=== PATIENT | male | born 1940 | race Caucasian/White ===

== ENCOUNTER → 2018-03-16 09:28 | Outpatient (CLI) | payer MEDICARE, OTHER, SELFPAY ==
[2018-03-16 11:40] LABS: Alanine Aminotransferase 34 IU/L (21-72); Albumin 4.1 g/dL (3.5-5.0); Albumin Globulin Ratio 1.6 (1.0-2.8); Alkaline Phosphatase 56 U/L (38-126); Aspartate Aminotransferase 31 IU/L (17-59); BUN Creatinine Ratio 15.6 (6-22); Bilirubin Total 1.5 mg/dL (0.2-1.3); Blood Urea Nitrogen 14 mg/dL (9-20); Calcium 9.3 mg/dL (8.4-10.2); Carbon Dioxide 31 mmol/L (22-32); Chloride 100 mmol/L (98-107); Estimated Glomerular Filt Rate > 60.0 mL/min (>60); Globulin 2.6 g/dL (1.7-4.1); Glucose 88 mg/dL (80-110); HEMOLYSIS < 15 (0-50); Potassium 4.9 mmol/L (3.4-5.1); Sodium 140 mmol/L (137-145); Total Protein 6.7 g/dL (6.3-8.2)
[2018-03-17 11:07] LABS: Cholesterol 204 mg/dL (140-199); HDL Cholesterol 53 mg/dL (40-60); LDL Cholesterol Calculated 132 mg/dL (<100); Triglycerides 95 mg/dL (35-150)
== END ==
PROVIDERS: PCP Internal Medicine; Visit Provider Internal Medicine
DX: E78.5 Hyperlipidemia, unspecified (principal); I10 Essential (primary) hypertension; N13.8 Other obstructive and reflux uropathy; N40.1 Benign prostatic hyperplasia with lower urinary tract symptoms
CPT/HCPCS: 36415; 80053; 80061; 84153

== ENCOUNTER 2018-08-19 11:02 | Day surgery (SDC) | payer MEDICARE, OTHER, SELFPAY ==
[2018-08-10 10:11] VITALS: BMI 23.0
[2018-08-19 12:38] VITALS: BP 187/84; PULSE 65; RESP 18; TEMP 36.3; O2SAT 98; BMI 23.0
[2018-08-19] MEDS: LACTATED RINGERS 1,000 ML 100 ML IV ×2 (12:47→14:53)
--- NOTE | 2018-08-19 13:07 | PM.PREOP ---
Pre-operative Note Interval Note Pre-op Check: Yes History & Physical Reviewed by Physician and Yes Exam Performed Changes: No H&P completed within 30 days and has changed as indicated here:: H&P from 07/27/2018
[2018-08-19] MEDS: CEFAZOLIN 2 GM/100 ML FROZ.PIGGY IV (13:30)
--- NOTE | 2018-08-19 13:57 | SUR.OPER ---
Supine on padded OR bed, head on pillow, arms secured on padded arm boards at <90 degrees abduction, legs uncrossed, safety belt at thigh, tape over blanket over lower legs.
[2018-08-19] MEDS: BUPIVACAINE 0.5% (PF) VIAL 30 ML INJ (14:05)
[2018-08-19 15:10] VITALS: BP 123/62; PULSE 67; RESP 14; TEMP 37.3; O2SAT 97
[2018-08-19 15:15] VITALS: BP 130/66; PULSE 74; RESP 14; O2SAT 95
[2018-08-19 15:20] VITALS: BP 129/63; PULSE 71; RESP 10; TEMP 37.3; O2SAT 96
--- NOTE | 2018-08-19 15:20 | PM.OP.1 ---
Operative Date/Time/Diagnoses Date of procedure: 08/19/18 Time of procedure: 15:03 Pre-op diagnosis: Bilateral inguinal hernias. Reducible. Post-op diagnosis: same (Direct hernias) Procedure & Clinicians Procedure: Repair of inguinal hernias bilateral with plug and patch technique Same procedure as scheduled: Yes Indications: Symptomatic hernias Surgeon: Yoel Haley Click Yes if Unassisted: Yes Anesthesia Type: General Operative Notes Findings: Direct hernias Closure Type: primary Specimen(s): none sent Implants & Drains: Mesh Estimated Blood Loss (mL): 10 Blood products transfused: none Procedure in detail: The patient was placed supine on the operating room table and underwent general LMA anesthesia. He was prepped and draped in the usual fashion. A transverse incision was made on the left overlying the internal ring and carried down to the level of the external oblique. The external oblique was opened parallel with its fibers through the external ring. The cord structures were elevated. The cremaster was opened proximally and search made for an indirect sac. None was found. There was a small amount of fat removed from the cord.. The floor was examined and was found to be markedly attenuated with a direct hernia. The floor was opened and the preperitoneal fat dissected off of the attenuated floor tissues. A medium plug was placed in the defect and tacked into place with interrupted 0 Ethibond suture. I decided to close the floor over the mass using a a technique similar to a modified shoulder ice repair. Suture was placed near the pubic tubercle and the medial underside of the floor was sutured to the cut lateral side eliminating the weakened area. Then the cut medial side was run back suturing to the edge of the ilioinguinal lunate ligament tiny of the pubic tubercle. A patch was placed across the floor and tacked at the pubic tubercle, the posterior lamella of the anterior rectus sheath, the ilioinguinal ligament, and superior lateral to the cord. The opening was modified as necessary to prevent tight constriction of the cord. Sutures of 0 Tycron were used to secure the mesh. The external oblique was closed with a running 3 0 Polysorb. The subcu was closed with interrupted 3 0 Polysorb. The skin was closed with a running 4 0 Polysorb subcuticular stitch . Attention was then turned to the right side where an I a mirror incision and almost identical operation was undertaken. The only difference was that I use a large the right side at completion local anesthetic was infiltrated around the incisions and Mastisol and Steri-Strips were placed across the wound and then a dressing on top. Testes were pulled down. Patient was taken to the recovery area extubated in good condition. Complications: none Condition: stable Disposition: PACU Plan for aftercare: Follow-up in about 2 weeks.
[2018-08-19 15:35] VITALS: BP 107/46; PULSE 72; RESP 10; TEMP 37.3; O2SAT 97
== END 2018-08-19 16:15 | disposition home or self-care (01) ==
PROVIDERS: Family Provider Internal Medicine; PCP Internal Medicine; Visit Provider Specialist
PROC: (CPT 49505; principal; 2018-08-19 12:45)
DX: K40.20 Bilateral inguinal hernia, without obstruction or gangrene, not specified as recurrent (principal); I10 Essential (primary) hypertension; E78.5 Hyperlipidemia, unspecified; N40.1 Benign prostatic hyperplasia with lower urinary tract symptoms; N13.8 Other obstructive and reflux uropathy
CPT/HCPCS: 49505; C1781; J0690; J1100; J2250; J2405; J2704; J3010

== ENCOUNTER → 2019-02-11 09:43 | Outpatient (CLI) | payer MEDICARE, OTHER, SELFPAY ==
--- NOTE | 2019-02-11 | DI.CT.S_ITS ---
PROCEDURE: CT ORBIT BI WO/W CON INDICATIONS: PAPILLEDEMA TECHNIQUE: After the administration of intravenous contrast, 2.5 mm axial images acquired through the orbits, with coronal and sagittal reformats. For radiation dose reduction, the following was used: automated exposure control, adjustment of mA and/or kV according to patient size. COMPARISON: [facility], CT, CT HEAD/BRAIN WO/W CON, 02/11/2019, 10:51. FINDINGS: Image quality: Excellent. Orbits: In this patient with this given history, scrutiny is given to the optic nerves. The optic nerves are normal in size and enhancement. A left lens replacement can be seen. Globes are symmetrical. No retrobulbar masses or fat abnormalities. The extra-ocular muscles are normal and symmetrical in appearance. Lacrimal glands are normal. Optic chiasm is normal. Periorbital soft tissues are normal. Intracranial: The pituitary gland is normal, without sellar or suprasellar masses. Visualized cerebral hemispheres, brainstem, and spinal cord appear normal. The abnormal brain enhancement seen on the accompanying head CT is off of the [id number] of this study. Bones and sinuses: Visualized calvarium and facial bones appear intact. Visualized sinuses and mastoids are clear. IMPRESSION: Normal optic nerves. Normal orbits. Note: Case discussed by telephone with Dr. Alexis at 1:13 PM [place] time on February 11, 2019. Dictated by: Alfonso Jolly M.D. on 02/11/2019 at 12:18 Approved by: Alfonso Jolly M.D. on 02/11/2019 at 12:19
--- NOTE | 2019-02-11 | DI.CT.S_ITS ---
PROCEDURE: CT HEAD/BRAIN WO/W CON INDICATIONS: PAPILLEDEMA TECHNIQUE: 4.5 mm thick angled axial sections acquired from the foramen magnum to the vertex both before and after the administration of intravenous contrast, with coronal and sagittal reformats. For radiation dose reduction, the following was used: automated exposure control, adjustment of mA and/or kV according to patient size. COMPARISON: [facility], CT, CT ORBIT BI WO/W CON, 02/11/2019, 10:51. FINDINGS: Image quality: Excellent. CSF spaces: Basal cisterns are patent. No extra-axial fluid collections. Ventricles are symmetric in size and shape. Brain: No midline shift. No intracranial bleeds are seen. There is abnormal enhancement seen involving the right posterior frontal lobe superiorly, which measures 2.1 x 2.3 cm in greatest axial dimension. No abnormal intracranial enhancement. There is cerebral volume loss for age. There is periventricular white matter chronic small vessel ischemic change. There is intracranial internal carotid artery atherosclerosis. Skull and face: Calvarium and visualized facial bones appear intact, without suspicious lesions. In this patient with this given history, scrutiny is given to the orbits. No orbital abnormality can be seen, including involving the optic nerves. It is made of a left lens replacement. Sinuses: Visualized sinuses and mastoids are clear. IMPRESSION: Abnormal enhancement seen involving the right posterior superior frontal lobe. The appearance is nonspecific, although concern is raised for a primary brain neoplasm. Differential diagnosis also includes metastatic disease and a vascular lesion, however. Please consider a dedicated brain MRI without and with contrast for further evaluation (assuming that there is no contraindication). No orbital abnormality is detected. Note: Findings and recommendations discussed by telephone with Dr. Alexis at 1:13 PM [place] time on February 11, 2019. Dictated by: Alfonso Jolly M.D. on 02/11/2019 at 12:06 Approved by: Alfonso Jolly M.D. on 02/11/2019 at 12:18
[2019-02-11 10:37] LABS: Blood Urea Nitrogen 18 mg/dL (9-20); Estimated Glomerular Filt Rate > 60.0 mL/min (>60)
[2019-02-11 10:42] LABS: C-Reactive Protein Quant < 0.5 mg/dL (<1.0)
[2019-02-11 11:11] LABS: Add Manual Diff / Slide Review NO; Basophils Absolute Auto 100 /uL (0-100); Eosinophils Absolute Auto 200 /uL (0-450); Eosinophils Percent Auto 2.5 % (2-4); Hemoglobin 15.5 g/dL (13.5-17.5); Lymphocytes Absolute Auto 1700 /uL (1100-4500); Lymphocytes Percent Auto 27.2 % (25-40); Mean Corpuscular Hemoglobin 30.9 PG (26-34); Mean Corpuscular Volume 93.6 fL (80-100); Monocytes Absolute Auto 500 /uL (0-900); Monocytes Percent Auto 8.1 % (3-14); Neutrophils Absolute Auto 3800 /uL (1500-7000); Neutrophils Percent Auto 61.2 % (50-75); Platelet Count 220 X10^3/uL (150-400); Red Blood Cell Count 5.02 X10^6/uL (4.5-5.9); White Blood Cell Count 6.2 X10^3/uL (4.5-11.0)
[2019-02-11 11:11] LABS: Hemoglobin A1C% w Est Avg Glu 5.3 % (4.0-6.0)
[2019-02-11 11:19] LABS: Erythrocyte Sedimentation Rate 1 MM/HR (0-15)
[2019-02-11 11:27] LABS: Alanine Aminotransferase 35 IU/L (21-72); Albumin 4.2 g/dL (3.5-5.0); Albumin Globulin Ratio 1.8 (1.0-2.8); Alkaline Phosphatase 53 U/L (38-126); Aspartate Aminotransferase 41 IU/L (17-59); Bilirubin Total 1.3 mg/dL (0.2-1.3); Blood Urea Nitrogen 18 mg/dL (9-20); Calcium 9.3 mg/dL (8.4-10.2); Carbon Dioxide 31 mmol/L (22-32); Chloride 103 mmol/L (98-107); Cholesterol 142 mg/dL (140-199); Estimated Glomerular Filt Rate > 60.0 mL/min (>60); Globulin 2.4 g/dL (1.7-4.1); Glucose 77 mg/dL (80-110); HDL Cholesterol 56 mg/dL (40-60); HEMOLYSIS < 15 (0-50); LDL Cholesterol Calculated 72 mg/dL (<100); Potassium 4.9 mmol/L (3.4-5.1); Sodium 141 mmol/L (137-145); Total Protein 6.6 g/dL (6.3-8.2); Triglycerides 68 mg/dL (35-150)
[2019-02-11 11:56] LABS: TSH w/ Reflex to FT4 2.16 uIU/mL (0.47-4.68)
[2019-02-16 08:47] LABS: Arsenic < 2 mcg/L (< 23); Lead, Blood 1 mcg/dL (< 5)
[2019-02-17 13:25] LABS: Mercury, Blood < 2
== END ==
PROVIDERS: PCP Internal Medicine; Visit Provider Optometrist
DX: H47.10 Unspecified papilledema (principal); G62.9 Polyneuropathy, unspecified; E78.5 Hyperlipidemia, unspecified; I10 Essential (primary) hypertension
CPT/HCPCS: 36415; 70470; 70482; 80053; 80061; 82565; 83036; 83825; 84443; 84520; 85025; 85651; 86140; Q9967

== ENCOUNTER → 2019-02-14 06:29 | Outpatient (CLI) | payer MEDICARE, OTHER, SELFPAY ==
--- NOTE | 2019-02-14 | DI.MRI.S_ITS ---
PROCEDURE: MR HEAD/BRAIN WO/W CON INDICATIONS: BENIGN NEOPLASM TECHNIQUE: Noncontrast axial T1 spin echo, axial T2 fast spin echo, sagittal and axial FLAIR, coronal T2 fast spin echo, axial gradient echo, axial diffusion and ADC through the brain. After the administration of contrast, axial and coronal T1 spin echo with fat saturation through the brain. COMPARISON: , CT, CT HEAD/BRAIN WO/W CON, 02/11/2019, 10:51. FINDINGS: Image quality: Degraded by body habitus/technical factors. CSF spaces: Basal cisterns are patent. No extra-axial fluid collections. Ventricles are normal in size and shape. Brain: No midline shift. No acute intracranial bleeds or masses. Within the right posterior superior frontal lobe, there is a cluster of curvilinear and nodular low T2 signal intensity foci, measuring roughly 20 mm transverse by 17 mm anteroposterior. There is curvilinear and nodular enhancement within this region following intravenous contrast administration. There is cerebral volume loss for age. There is periventricular white matter chronic small vessel ischemic change. The brainstem appears normal. Diffusion-weighted images demonstrate no acute ischemic insults. No chronic ischemic insults. Normal intravascular flow voids are present. Skull and face: Calvarial marrow is normal in signal. Orbits appear normal. Sinuses: Mild mucosal thickening within the bilateral ethmoid and within the right maxillary sinus. Mastoids clear. IMPRESSION: 1. 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 No evidence of acute process such as hemorrhage. Dictated by: Tammi Cobos M.D. on 02/14/2019 at 11:12 Approved by: Tammi Cobos M.D. on 02/14/2019 at 11:18
== END ==
PROVIDERS: PCP Internal Medicine; Visit Provider Optometrist
DX: D33.2 Benign neoplasm of brain, unspecified (principal)
CPT/HCPCS: 70553

== ENCOUNTER 2019-05-19 11:55 | Day surgery (SDC) | payer MEDICARE, OTHER, SELFPAY ==
--- NOTE | 2019-05-19 | PATH_ITS ---
[facility] Accession Number: [id number] . 01 Material submitted: . colon - POLYP AT 90 CM COLON . 02 Diagnosis: Colon, Polyp at 90 cm, Biopsy: Benign lymphoid aggregate. [facility]/05/20/2019 . 02 Electronically signed: . Genia Wilde MD, Pathologist NPI- [id number] . 01 Gross description: . POLYP AT 90 CM COLON: Received in formalin is 1 fragment(s) of cristina, soft tissue measuring 0.1 x 0.1 x 0.1 cm which is entirely submitted and submitted entirely in 1 cassette(s) /DMC /DMC . 02 Pathologist provided ICD-10: K63.5 . 02 CPT . 104523 Performed at: 01 [facility] [address] [place] [address], [place], [place] [id number] MD Philippe Hinojosa MD Phone: [phone] Performed at: 02 [facility] [address] [place], [place] [id number] MD Genia Wilde MD Phone: [phone]
[2019-05-19 12:10] VITALS: BP 175/86; PULSE 67; RESP 16; TEMP 36.6
[2019-05-19 12:27] VITALS: BMI 23.2
[2019-05-19] MEDS: SODIUM CHLORIDE 0.9% 1,000 ML 100 ML IV (12:41)
--- NOTE | 2019-05-19 12:41 | P.HP_ITS ---
History of Present Illness Chief complaint: 78054 SCREENING COLONOSCOPY Narrative: Patient presents for colorectal screening. They have had a previous endoscopy 2013 normal and 2008 demonstated a polyp-type non specified. On further history denies any recent gastrointestinal symptoms. No nausea, vomiting, abdominal pain, loss of appetite, unexplained weight loss, change in bowel habits, diarrhea, constipation, melena, hematochezia, or bright red blood per rectum. 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) History of adenomatous polyp of colon (Chronic ~1999) Actinic keratosis (Chronic ~1999) RBBB (Chronic) Vision disorder (Chronic) Bruises easily (Resolved) Fracture (Resolved ~1994) Hernia (Resolved ~2014) Measles (Resolved ~1947) Surgical History (Updated 03/24/19 @ 09:52 by Lorenzo Langston MD) Anesthesia (Resolved) History of knee surgery (Inactive ~10/2017) S/P carpal tunnel release (Inactive ~02/2019) S/P cataract extraction (Inactive) S/P right inguinal hernia repair (Inactive ~08/2018) Status post colonoscopy (~1999) Status post colonoscopy (~2004) Status post colonoscopy (~2009) Status post rotator cuff repair (~1994) Family History Brother Age: 87 Family hx of colon cancer Father Family hx of colon cancer Cancer Mother Hypertension Mental health problem Social History marital status: number of children: 2 household members: spouse lives independently: Yes caregiver/support person: No housing: house pets and animals: Yes education level: college occupational status: other Previous occupational history: product development engineer [employer] elena/yarsani: [employer]ikh[employer] travel history: over 6 months ago leisure activities: exercise, reading, volunteer work and other Smoking Status: Never smoker Tobacco: How many years used: 0 second hand exposure: Yes (In the past.) alcohol intake: current substance use type: does not use Family & Social History Social History: household members spouse lives independently Yes caregiver/support person No Tobacco & Substance use: Smoking Status Never smoker alcohol intake current alcohol intake frequency 0-2 drinks per day Substance Use Type does not use Meds Home Medications Medication Instructions Recorded Confirmed Type lisinopril 20 mg tablet 20 mg PO DAILY #30 tab 01/21/19 05/19/19 Rx rosuvastatin 10 mg tablet 10 mg PO DAILY #90 tab 03/18/19 05/19/19 Rx tamsulosin [Flomax] 0.4 mg PO QDAY #90 cap 04/05/19 05/19/19 Rx Allergies Allergy/AdvReac Type Severity Reaction Status Date / Time atorvastatin AdvReac Unknown Muscle Verified 03/24/19 09:32 symptoms No Known Allergies Allergy Uncoded 03/24/19 09:32 Review of Systems Review of Systems All systems reviewed & are unremarkable except as noted in HPI and below Exam Vital Signs (past 8 hours): General-adult male no acute distress, well nourished HEENT-moist mucous membranes, no scleral icterus Neck-supple with full range of motion, no lymphadenopathy Chest- no labored respirations, clear to auscultation bilaterally Cardiac-regular rate and rhythm Abdomen-soft, nontender, non distended Extremities-no edema, warm well perfused Neurological-alert and oriented x 3. No focal deficits Skin-normal temperature and turgor, no rashes or ulcers Assessment & Plan Assessment & Plan narrative: Patient is requiring colorectal screening. Colonoscopy is recommended. Technical details were discussed. Risks, benefits, alternatives explained. Risks including but not limited to sedation, aspiration, bleeding, pain, missed lesion, incomplete examination, need for further radiographic studies, colonic perforation, need for major abdominal surgery, and all attendant risks major surgery were discussed at length. All questions were answered to their satisfaction, and they voiced understanding.
--- NOTE | 2019-05-19 12:41 | PM.PREOP ---
Pre-operative Note Interval Note History & Physical reviewed/Exam performed by Physician: Yes Changes to H&P: No ASA Class (for procedural sedation): II
[2019-05-19] MEDS: MIDAZOLAM 5 MG/5 ML VIAL IV (13:00)
[2019-05-19] MEDS: fentaNYL 250 MCG/5 ML INJ IV (13:01)
--- NOTE | 2019-05-19 13:36 | PM.OP.ENDO ---
Operative Date/Time/Diagnoses Date of procedure: 05/19/19 Time of procedure: 13:37 Pre-op diagnosis: screening colonoscopy Post-op diagnosis: same Procedure & Clinicians Study performed: colonoscopy Same procedure as scheduled: Yes Indications: screening colonoscopy Surgeon: Anmol Coles Procedure Notes SCOAP/Timeout: performed Procedure in detail: Patient was placed in the left lateral decubitus position. Time-out was performed. A digital rectal exam was performed which demonstrated a normal prostate. The scope was gently inserted into the anus through the descending colon and the transverse colon the ascending colon and the ileocecal valve was reached. This scope was carefully withdrawn. A benign appearing polyps at 90 cm was identified and biopsied. Was hemostatic. The scope was carefully withdrawn. Patient tolerated the procedure well. Scope withdrawal time: 10 Sedation minutes: 38 Findings: diverticulosis and polyp Specimen(s): other (polyp biopsied at 90 cm) Impression: diverticulosis, benign appearing polyp at 90 cm Recommendations: Colonscopy in 10 years Disposition: same day surgery
[2019-05-19 13:37] VITALS: BP 141/86; PULSE 64; RESP 12; TEMP 36.4; O2SAT 95
[2019-05-19 13:42] VITALS: BP 139/89; PULSE 61; RESP 12; O2SAT 95
[2019-05-19 13:47] VITALS: BP 152/87; PULSE 72; RESP 14; O2SAT 96
[2019-05-19 13:52] VITALS: BP 156/90; PULSE 64; RESP 16; TEMP 37.5; O2SAT 97
== END 2019-05-19 14:38 | disposition home or self-care (01) ==
PROVIDERS: PCP Internal Medicine; Visit Provider Surgery
PROC: 0DJD8ZZ Inspection of Lower Intestinal Tract, Via Natural or Artificial Opening Endoscopic (ICD-10-PCS; CPT 45378; principal; 2019-05-19 13:00)
DX: Z12.11 Encounter for screening for malignant neoplasm of colon (principal); K63.5 Polyp of colon; K57.30 Diverticulosis of large intestine without perforation or abscess without bleeding; I10 Essential (primary) hypertension; E78.5 Hyperlipidemia, unspecified; N40.1 Benign prostatic hyperplasia with lower urinary tract symptoms; I45.10 Unspecified right bundle-branch block
CPT/HCPCS: 45380; 88305; 99152; 99153; J2250; J3010

== ENCOUNTER → 2020-04-24 08:58 | Outpatient (CLI) | payer MEDICARE, OTHER, SELFPAY ==
[2020-04-24 09:50] LABS: Albumin 4.5 g/dL (3.5-5.0); Aspartate Aminotransferase 50 IU/L (17-59); BUN Creatinine Ratio 17.8 (6-22); Blood Urea Nitrogen 13 mg/dL (9-20); Calcium 9.6 mg/dL (8.4-10.2); Carbon Dioxide 31 mmol/L (22-32); Chloride 105 mmol/L (98-107); Cholesterol 158 mg/dL (140-199); Estimated Glomerular Filt Rate > 60.0 mL/min (>60); Glucose 94 mg/dL (80-110); HDL Cholesterol 53 mg/dL (40-60); HEMOLYSIS < 15 (0-50); LDL Cholesterol Calculated 86 mg/dL (<100); Potassium 4.7 mmol/L (3.4-5.1); Sodium 142 mmol/L (137-145); Triglycerides 97 mg/dL (35-150)
[2020-04-24 09:55] LABS: Alanine Aminotransferase 38 IU/L (<50); Albumin Globulin Ratio 1.7 (1.0-2.8); Alkaline Phosphatase 63 U/L (38-126); Bilirubin Total 1.7 mg/dL (0.2-1.3); Globulin 2.6 g/dL (1.7-4.1); Total Protein 7.1 g/dL (6.3-8.2)
[2020-04-24 10:19] LABS: Prostate Specific Antigen Scrn 1.43 ng/mL (0.1-4.0)
== END ==
PROVIDERS: PCP Internal Medicine; Referring Provider Internal Medicine; Visit Provider Internal Medicine
DX: Z12.5 Encounter for screening for malignant neoplasm of prostate (principal); E78.2 Mixed hyperlipidemia; I10 Essential (primary) hypertension
CPT/HCPCS: 36415; 80053; 80061; G0103

== ENCOUNTER → 2021-04-26 08:06 | Outpatient (CLI) | payer MEDICARE, OTHER, SELFPAY ==
[2021-04-26 10:53] LABS: Alanine Aminotransferase 31 IU/L (<50); Albumin 3.9 g/dL (3.5-5.0); Albumin Globulin Ratio 1.6 (1.0-2.8); Alkaline Phosphatase 54 U/L (38-126); Aspartate Aminotransferase 40 IU/L (17-59); Bilirubin Total 1.1 mg/dL (0.2-1.3); Blood Urea Nitrogen 16 mg/dL (9-20); Calcium 9.5 mg/dL (8.4-10.2); Carbon Dioxide 31 mmol/L (22-32); Chloride 105 mmol/L (98-107); Cholesterol 151 mg/dL (140-199); Estimated Glomerular Filt Rate > 60.0 mL/min (>60); Globulin 2.4 g/dL (1.7-4.1); Glucose 87 mg/dL (80-110); HDL Cholesterol 58 mg/dL (40-60); HEMOLYSIS < 15 (0-50); LDL Cholesterol Calculated 78 mg/dL (<100); Potassium 4.6 mmol/L (3.4-5.1); Sodium 140 mmol/L (137-145); Total Protein 6.3 g/dL (6.3-8.2); Triglycerides 74 mg/dL (35-150)
[2021-04-26 11:18] LABS: Prostate Specific Antigen Scrn 1.39 ng/mL (0.1-4.0)
== END ==
PROVIDERS: PCP Internal Medicine; Referring Provider Internal Medicine; Visit Provider Internal Medicine
DX: E78.2 Mixed hyperlipidemia (principal); Z12.5 Encounter for screening for malignant neoplasm of prostate; I10 Essential (primary) hypertension
CPT/HCPCS: 36415; 80053; 80061; G0103

== ENCOUNTER 2021-06-20 12:22 | Emergency (ER) | payer MEDICARE, OTHER, SELFPAY ==
[2021-06-20 12:33] VITALS: BP 205/98; PULSE 88; RESP 14; TEMP 37.1; O2SAT 96
== END 2021-06-20 13:35 | disposition left against medical advice (07) ==
PROVIDERS: Emergency Provider Emergency Medicine; PCP Internal Medicine
CPT/HCPCS: 99281

== ENCOUNTER → 2021-07-09 09:43 | Outpatient (CLI) | payer MEDICARE, OTHER, SELFPAY ==
[2021-07-09 12:07] LABS: COVID19 -Nasal RAPID Negative (Negative)
== END ==
PROVIDERS: PCP Internal Medicine; Visit Provider Specialist
DX: Z20.822 Contact with and (suspected) exposure to COVID-19 (principal); Z01.812 Encounter for preprocedural laboratory examination
CPT/HCPCS: 87635; C9803

== ENCOUNTER 2021-07-10 13:10 | Day surgery (SDC) | payer MEDICARE, OTHER, SELFPAY ==
[2021-07-05 08:39] VITALS: BMI 22.9
[2021-07-10] VITALS (7 sets, daily range): BP systolic 111–172; BP diastolic 49–84; PULSE 69–86; RESP 10–16; TEMP 36.6–36.8; O2SAT 95–98; BMI 22.9
[2021-07-10] MEDS: LACTATED RINGERS 1,000 ML 42 ML IV (13:53)
--- NOTE | 2021-07-10 13:54 | SUR.PREOP ---
RBBB noted on chart. Discussed with Pt, Pt denies cardiology consult prior to surgery. No EKG found on service observer chief. Note made on paper chart, Pt encouraged to share info with anesthesiologist.
--- NOTE | 2021-07-10 14:28 | PM.PREOP ---
Pre-operative Note COVID-19 COVID-19 status: Negative Result date/Date tested (Pos, Neg/Pending): 07/09/21 Interval Note History & Physical reviewed/Exam performed by Physician: Yes Changes to H&P: No
[2021-07-10] MEDS: CEFAZOLIN 1 GM VIAL 2 GM IV (14:38)
--- NOTE | 2021-07-10 14:52 | SUR.OPER ---
Supine on padded OR bed, head on pillow, arms secured on padded arm boards at <90 degrees abduction, legs uncrossed, safety belt at thigh, tape over blanket over lower legs.
[2021-07-10] MEDS: BUPIVACAINE 0.5% (PF) VIAL 30 ML INJ (15:25)
--- NOTE | 2021-07-10 16:46 | P.OP_ITS ---
Operative Date/Time/Diagnoses Date of procedure: 07/10/21 Time of procedure: 16:46 Pre-op diagnosis: Recurrent right inguinal hernia reducible Post-op diagnosis: same (Indirect hernia) Procedure & Clinicians Procedure: Repair with onlay of mesh Same procedure as scheduled: Yes Indications: Symptomatic right inguinal hernia Surgeon: Yoel Haley Click Yes if Unassisted: Yes Anesthesia Type: General Operative Notes Findings: Indirect hernia. Old mesh a portion which was removed. Closure Type: primary Specimen(s): none sent Prosthetic devices, grafts, tissues, transplants, or devices: 2 x 4 in piece of Marlex mesh Estimated Blood Loss (mL): 5 Blood products transfused: none Procedure in detail: The patient was placed supine on the operating room table and underwent general LMA anesthesia. He was prepped and draped in the usual fashion. A transverse incision was made overlying the right internal ring through the old scar and carried down to the level of the external oblique. The external oblique was opened parallel with its fibers through the external ring. The cord structures were elevated. This was a very tedious matter due to scarring from his prior operation. I examined the tissues and there was actually some weakness superior and lateral to the cord. The cord was quite small. I opened it however and found that there was an indirect sac. I it from surrounding structures and opened it and suture ligated at the level the deep epigastric vessels. It was transected and the stump of the sac was allowed to retract. Portion of the sac was removed. I dissected the ex ternal oblique after of the underlying mesh and removed a portion of it located superior and lateral to the cord so that I could place a new piece of mesh in the region. A nerve in the area was intentionally transected and removed as it had been stretched and would be laying directly against the new mesh. The end was buried in muscle. Patch was placed across the floor and tacked at the pubic tubercle, the posterior lamella of the anterior rectus sheath, the ilioinguinal ligament, and superior lateral to the cord. An opening was created in the mesh to allow the cord structures to egress through the mesh. Sutures of 0 Tycron were used to secure the mesh. The external oblique was closed with a running 3 0 Vicryl. The subcu was closed with interrupted 3 0 Vicryl. The skin was closed with a running 4 0 Vicryl subcuticular stitch and Steri-Strips. Dressing was applied, the patient was awakened, and the patient was taken to the recovery area in good condition. Complications: none Post-operative Condition: stable Disposition: PACU
== END 2021-07-10 17:30 | disposition home or self-care (01) ==
PROVIDERS: PCP Internal Medicine; Referring Provider Specialist; Visit Provider Specialist
PROC: (CPT 49520; principal; 2021-07-10 14:15)
DX: K40.91 Unilateral inguinal hernia, without obstruction or gangrene, recurrent (principal); I10 Essential (primary) hypertension; E78.5 Hyperlipidemia, unspecified
CPT/HCPCS: 49520; C1781; J0690; J1100; J1885; J2405; J2704; J3010

== ENCOUNTER → 2021-11-06 07:51 | Outpatient (CLI) | payer MEDICARE, SELFPAY ==
[2021-11-06 09:04] LABS: Alanine Aminotransferase 30 IU/L (<50); Albumin Globulin Ratio 1.7 (1.0-2.8); Alkaline Phosphatase 46 U/L (38-126); Aspartate Aminotransferase 36 IU/L (17-59); BUN Creatinine Ratio 17.4 (6-22); Bilirubin Total 1.5 mg/dL (0.2-1.3); Blood Urea Nitrogen 15 mg/dL (9-20); Calcium 9.1 mg/dL (8.4-10.2); Carbon Dioxide 33 mmol/L (22-32); Chloride 103 mmol/L (98-107); Cholesterol 148 mg/dL (140-199); Estimated Glomerular Filt Rate > 60.0 mL/min (>60); Globulin 2.4 g/dL (1.7-4.1); Glucose 89 mg/dL (80-110); HDL Cholesterol 51 mg/dL (40-60); HEMOLYSIS < 15 (0-50); LDL Cholesterol Calculated 84 mg/dL (<100); Potassium 4.2 mmol/L (3.4-5.1); Sodium 137 mmol/L (137-145); Total Protein 6.4 g/dL (6.3-8.2); Triglycerides 66 mg/dL (35-150)
== END ==
PROVIDERS: PCP Internal Medicine; Referring Provider Internal Medicine; Visit Provider Internal Medicine
DX: E78.2 Mixed hyperlipidemia (principal); I10 Essential (primary) hypertension
CPT/HCPCS: 36415; 80053; 80061

== ENCOUNTER → 2022-12-22 08:55 | Outpatient (CLI) | payer MEDICARE, SELFPAY ==
[2022-12-22 10:33] LABS: Alanine Aminotransferase 26 IU/L (<50); Albumin 3.8 g/dL (3.5-5.0); Albumin Globulin Ratio 1.5 (1.0-2.8); Alkaline Phosphatase 63 U/L (38-126); Aspartate Aminotransferase 32 IU/L (17-59); BUN Creatinine Ratio 14.1 (6-22); Bilirubin Total 1.2 mg/dL (0.2-1.3); Blood Urea Nitrogen 12 mg/dL (9-20); Calcium 8.9 mg/dL (8.4-10.2); Carbon Dioxide 30 mmol/L (22-32); Chloride 103 mmol/L (98-107); Cholesterol 146 mg/dL (140-199); Estimated Glomerular Filt Rate > 60 mL/min (>60); Globulin 2.6 g/dL (1.7-4.1); Glucose 90 mg/dL (80-110); HDL Cholesterol 58 mg/dL (40-60); HEMOLYSIS < 15 (0-50); LDL Cholesterol Calculated 76 mg/dL (<100); Potassium 4.1 mmol/L (3.4-5.1); Sodium 139 mmol/L (137-145); Total Protein 6.4 g/dL (6.3-8.2); Triglycerides 61 mg/dL (35-150)
== END ==
PROVIDERS: PCP Internal Medicine; Referring Provider Internal Medicine; Visit Provider Internal Medicine
DX: I10 Essential (primary) hypertension (principal); E78.2 Mixed hyperlipidemia
CPT/HCPCS: 36415; 80053; 80061

== ENCOUNTER → 2023-05-28 07:18 | Outpatient (CLI) | payer MEDICARE, SELFPAY ==
[2023-05-28 08:07] LABS: Alanine Aminotransferase 31 IU/L (<50); Albumin Globulin Ratio 1.7 (1.0-2.8); Alkaline Phosphatase 52 U/L (38-126); Aspartate Aminotransferase 43 IU/L (17-59); BUN Creatinine Ratio 17.9 (6-22); Bilirubin Total 1.7 mg/dL (0.2-1.3); Blood Urea Nitrogen 15 mg/dL (9-20); Carbon Dioxide 30 mmol/L (22-32); Chloride 102 mmol/L (98-107); Cholesterol 137 mg/dL (140-199); Estimated Glomerular Filt Rate > 60 mL/min (>60); Globulin 2.4 g/dL (1.7-4.1); Glucose 90 mg/dL (80-110); HDL Cholesterol 67 mg/dL (40-60); HEMOLYSIS < 15 (0-50); LDL Cholesterol Calculated 60 mg/dL (<100); Potassium 4.1 mmol/L (3.4-5.1); Sodium 138 mmol/L (137-145); Total Protein 6.4 g/dL (6.3-8.2); Triglycerides 52 mg/dL (35-150)
[2023-05-28 08:17] LABS: Add Manual Diff / Slide Review NO; Basophils Absolute Auto 100 /uL (0-100); Basophils Percent Auto 1.2 % (0-2); Eosinophils Absolute Auto 100 /uL (0-450); Eosinophils Percent Auto 2.3 % (2-4); Hematocrit 42.5 % (41-53); Hemoglobin 14.4 g/dL (13.5-17.5); Lymphocytes Absolute Auto 1900 /uL (1100-4500); Lymphocytes Percent Auto 31.5 % (25-40); Mean Corpuscular HGB Conc 33.9 % (30-36); Mean Corpuscular Hemoglobin 31.1 PG (26-34); Mean Corpuscular Volume 91.6 fL (80-100); Monocytes Absolute Auto 500 /uL (0-900); Monocytes Percent Auto 8.6 % (3-14); Neutrophils Absolute Auto 3400 /uL (1500-7000); Neutrophils Percent Auto 56.4 % (50-75); Platelet Count 212 X10^3/uL (150-400); Red Blood Cell Count 4.63 X10^6/uL (4.5-5.9); Red Cell Distribution Width 13.8 % (11.6-14.8); White Blood Cell Count 6.1 X10^3/uL (4.5-11.0)
[2023-05-28 08:36] LABS: TSH w/ Reflex to FT4 2.52 uIU/mL (0.47-4.68)
== END ==
PROVIDERS: PCP Internal Medicine; Referring Provider Internal Medicine; Visit Provider Internal Medicine
DX: E78.2 Mixed hyperlipidemia (principal); I10 Essential (primary) hypertension; R53.83 Other fatigue
CPT/HCPCS: 36415; 80053; 80061; 84443; 85025

== ENCOUNTER → 2023-09-24 15:35 | Outpatient (CLI) | payer MEDICARE, SELFPAY ==
[2023-09-25 19:44] LABS: Vitamin B12 359 pg/mL (239-931)
== END ==
PROVIDERS: PCP Internal Medicine; Referring Provider Physician Assistant; Visit Provider Physician Assistant
DX: G62.9 Polyneuropathy, unspecified (principal)
CPT/HCPCS: 36415; 82607

== ENCOUNTER → 2024-04-21 07:55 | Outpatient (CLI) | payer MEDICARE, SELFPAY ==
[2024-04-21 10:37] LABS: Alanine Aminotransferase 37 IU/L (<50); Albumin Globulin Ratio 1.6 (1.0-2.8); Alkaline Phosphatase 54 U/L (38-126); Aspartate Aminotransferase 37 IU/L (17-59); BUN Creatinine Ratio 17.5 (6-22); Bilirubin Total 1.3 mg/dL (0.2-1.3); Blood Urea Nitrogen 17 mg/dL (9-20); Calcium 8.7 mg/dL (8.4-10.2); Carbon Dioxide 31 mmol/L (22-32); Chloride 106 mmol/L (98-107); Cholesterol 148 mg/dL (140-199); Estimated Glomerular Filt Rate > 60 mL/min (>60); Globulin 2.5 g/dL (1.7-4.1); Glucose 89 mg/dL (80-110); HDL Cholesterol 73 mg/dL (40-60); HEMOLYSIS < 15 (0-50); LDL Cholesterol Calculated 66 mg/dL (<100); Potassium 4.9 mmol/L (3.4-5.1); Sodium 139 mmol/L (137-145); Total Protein 6.5 g/dL (6.3-8.2); Triglycerides 45 mg/dL (35-150)
== END ==
PROVIDERS: PCP Internal Medicine; Referring Provider Internal Medicine; Visit Provider Internal Medicine
DX: I10 Essential (primary) hypertension (principal); E78.2 Mixed hyperlipidemia
CPT/HCPCS: 36415; 80053; 80061

== ENCOUNTER → 2024-10-04 10:26 | Outpatient (CLI) | payer MEDICARE, SELFPAY ==
--- NOTE | 2024-10-04 10:28 | DI.US.S_ITS ---
PROCEDURE: US PERIPH VENOUS LOW EXTREM LT INDICATIONS: CHRONIC EDEMA TECHNIQUE: Real-time imaging, as well as color and pulse Doppler interrogation, were performed of the lower extremity deep veins from the inguinal ligament to the popliteal fossa, with documentation of the visualized calf veins. COMPARISON: None. FINDINGS: The common femoral, femoral, popliteal, and the visualized calf veins are normally compressible, and free of intraluminal thrombus. Color and pulse Doppler demonstrate normal phasic intraluminal flow. There is normal augmentation response to distal compression maneuver. IMPRESSION: No findings of lower extremity deep venous thrombosis. Dictated by: Sophie Barnett MD, PhD on 10/04/2024 at 11:27 Approved by: Sophie Barnett MD, PhD on 10/04/2024 at 11:27
== END ==
PROVIDERS: PCP Internal Medicine; Referring Provider Internal Medicine; Visit Provider Internal Medicine
DX: M79.89 Other specified soft tissue disorders (principal)
CPT/HCPCS: 93971

== ENCOUNTER → 2025-02-14 11:27 | Outpatient (CLI) | payer MEDICARE, SELFPAY ==
[2025-02-14 12:10] LABS: Add Manual Diff / Slide Review NO; Basophils Absolute Auto 100 /uL (0-100); Basophils Percent Auto 0.9 % (0-2); Eosinophils Absolute Auto 100 /uL (0-450); Eosinophils Percent Auto 1.4 % (2-4); Hematocrit 42.1 % (41-53); Lymphocytes Absolute Auto 1200 /uL (1100-4500); Mean Corpuscular HGB Conc 33.3 % (30-36); Mean Corpuscular Hemoglobin 31.5 PG (26-34); Mean Corpuscular Volume 94.6 fL (80-100); Monocytes Absolute Auto 500 /uL (0-900); Monocytes Percent Auto 8.9 % (3-14); Neutrophils Absolute Auto 3800 /uL (1500-7000); Neutrophils Percent Auto 66.8 % (50-75); Platelet Count 200 X10^3/uL (150-400); Red Blood Cell Count 4.45 X10^6/uL (4.5-5.9); Red Cell Distribution Width 14.4 % (11.6-14.8); White Blood Cell Count 5.7 X10^3/uL (4.5-11.0)
[2025-02-14 12:29] LABS: Alanine Aminotransferase 27 IU/L (<50); Albumin 4.1 g/dL (3.5-5.0); Albumin Globulin Ratio 1.6 (1.0-2.8); Alkaline Phosphatase 49 U/L (38-126); Aspartate Aminotransferase 36 IU/L (17-59); BUN Creatinine Ratio 22.3 (6-22); Bilirubin Total 1.3 mg/dL (0.2-1.3); Blood Urea Nitrogen 21 mg/dL (9-20); C-Reactive Protein Quant < 0.5 mg/dL (<1.0); Carbon Dioxide 28 mmol/L (22-32); Chloride 105 mmol/L (98-107); Estimated Glomerular Filt Rate > 60 mL/min (>60); Globulin 2.5 g/dL (1.7-4.1); Glucose 89 mg/dL (70-99); HEMOLYSIS < 15 (0-50); Potassium 4.8 mmol/L (3.4-5.1); Sodium 140 mmol/L (137-145); Total Protein 6.6 g/dL (6.3-8.2)
[2025-02-14 13:01] LABS: Free T4, Direct Thyroxine 1.08 ng/dL (0.78-2.19)
[2025-02-14 13:15] LABS: Thyroid Stimulating Hormone 1.34 uIU/mL (0.47-4.68)
== END ==
PROVIDERS: PCP Internal Medicine; Referring Provider Internal Medicine; Visit Provider Internal Medicine
DX: I10 Essential (primary) hypertension (principal); E78.5 Hyperlipidemia, unspecified; D64.9 Anemia, unspecified
CPT/HCPCS: 36415; 80053; 84439; 84443; 85025; 86140

== ENCOUNTER → 2025-08-10 08:38 | Outpatient (CLI) | payer MEDICARE, SELFPAY ==
[2025-08-10 10:16] LABS: Alanine Aminotransferase 25 IU/L (<50); Albumin 4.1 g/dL (3.5-5.0); Albumin Globulin Ratio 1.9 (1.0-2.8); Alkaline Phosphatase 50 U/L (38-126); Blood Urea Nitrogen 17 mg/dL (9-20); Calcium 8.8 mg/dL (8.4-10.2); Carbon Dioxide 27 mmol/L (22-32); Chloride 105 mmol/L (98-107); Cholesterol 133 mg/dL (140-199); Estimated Glomerular Filt Rate > 60 mL/min (>60); Globulin 2.2 g/dL (1.7-4.1); Glucose 89 mg/dL (70-99); HDL Cholesterol 68 mg/dL (40-60); HEMOLYSIS < 15 (0-50); Potassium 4.4 mmol/L (3.4-5.1); Sodium 138 mmol/L (137-145); Total Protein 6.3 g/dL (6.3-8.2); Triglycerides 47 mg/dL (35-150)
== END ==
PROVIDERS: PCP Internal Medicine; Referring Provider Internal Medicine; Visit Provider Internal Medicine
DX: I10 Essential (primary) hypertension (principal); E78.2 Mixed hyperlipidemia
CPT/HCPCS: 20610; 36415; 80053; 80061; 99213; J1010